=== PATIENT | female | born 1990 | race Two or more races ===

== ENCOUNTER 2020-03-22 08:25 | Inpatient (IN) | payer MEDICAID ==
[2020-03-28] MEDS ORDERED: cefOXitin 2 GM in Sodium Chloride 0.9% 50 ML IV ONE (06:30)
[2020-03-29] MEDS ORDERED: Dextrose 5%-Lactated Ringers 1,000 ML IV SCH (06:00)
[2020-03-29] MEDS ORDERED: Celecoxib 200 MG Cap PO ONE (06:00)
[2020-03-29] MEDS ORDERED: Scopolamine 1.5 MG Transdermal Patch TOP SCH (06:00)
[2020-03-29] MEDS ORDERED: Gabapentin 300 MG Cap PO ONE (06:00)
[2020-03-29] MEDS ORDERED: Albuterol/Ipratropium 3.0-0.5 MG/3 ML Neb Soln NEB ONE (06:30)
[2020-03-29] MEDS ORDERED: cefOXitin 2 GM in Sodium Chloride 0.9% 50 ML IV ONE (06:30)
[2020-03-29] MEDS ORDERED: Acetaminophen 500 MG Tab PO ONE (07:00)
[2020-03-29] MEDS ORDERED: fentaNYL 250 MCG/5 ML SDV ONE ×2 (07:09→07:47)
[2020-03-29] MEDS ORDERED: Propofol 200 MG/20 ML SDV ONE (07:13)
[2020-03-29] MEDS ORDERED: Glycopyrrolate 0.2 MG/ML 5 ML MDV ONE (07:13)
[2020-03-29] MEDS ORDERED: Ondansetron 4 MG/2 ML SDV ONE (07:13)
[2020-03-29] MEDS ORDERED: Rocuronium 50 MG/5 ML Vial ONE (07:13)
[2020-03-29] MEDS ORDERED: Dexamethasone 4 MG/ML SDV ONE (07:13)
[2020-03-29] MEDS ORDERED: Neostigmine Methylsulfate 1 MG/ML 5 ML Syringe ONE (07:13)
[2020-03-29] MEDS ORDERED: Succinylcholine 200 MG/10 ML MDV ONE (07:13)
[2020-03-29] MEDS ORDERED: Ketamine 500 MG/5 ML MDV IV SCH (07:30)
[2020-03-29] MEDS ORDERED: Ropivacaine 50 ML, dexAMETHasone 8 MG, EPINEPHrine 0.4 MG, Sodium Chloride 0.9% 27.6 ML NERVRT SCH ×4 (07:30)
[2020-03-29] MEDS ORDERED: Magnesium Sulfate 3 GM in Sodium Chloride 0.9% 100 ML IV SCH (07:30)
[2020-03-29] MEDS ORDERED: Magnesium Sulfate 4.8 GM in Sodium Chloride 0.9% 250 ML IV ONE (07:30)
[2020-03-29] MEDS ORDERED: Ketamine 50 MG in Sodium Chloride 0.9% 49.5 ML IV SCH (07:30)
[2020-03-29] MEDS: cefOXitin 2 GM Vial ONE ×2 (08:08→08:40)
[2020-03-29] MEDS ORDERED: Labetalol 20 MG/4 ML Syringe ONE (08:28)
[2020-03-29] MEDS ORDERED: hydrOXYzine HCL 100 MG/2 ML SDV IM ONE (09:11)
[2020-03-29] MEDS ORDERED: fentaNYL 100 MCG/2 ML SDV IVPUSH ONE (09:11)
[2020-03-29 09:55] LABS: HEMOGLOBIN A1C 4.8 % (4.5-6.2)
[2020-03-29] MEDS ORDERED: Cyclobenzaprine 10 MG Tab PO PRN (11:02)
[2020-03-29] MEDS ORDERED: Albuterol/Ipratropium 3.0-0.5 MG/3 ML Neb Soln INH PRN (12:00)
[2020-03-29] MEDS ORDERED: hydrOXYzine HCL 100 MG/2 ML SDV IM PRN (12:00)
[2020-03-29] MEDS ORDERED: HYDROmorphone 1 MG/ML Syringe IV PRN (12:00)
[2020-03-29] MEDS ORDERED: Metoclopramide 10 MG/2 ML SDV IVPUSH PRN (12:00)
[2020-03-29] MEDS ORDERED: Ondansetron 4 MG/2 ML SDV IVPUSH PRN (12:00)
[2020-03-29] MEDS ORDERED: diphenhydrAMINE 50 MG/ML SDV IVPUSH PRN (12:00)
[2020-03-29] MEDS ORDERED: HYDROmorphone 0.5 MG/0.5 ML Syringe IVPUSH PRN (12:00)
[2020-03-29] MEDS ORDERED: Acetaminophen 500 MG Tab PO PRN (12:00)
[2020-03-29] MEDS ORDERED: Labetalol 20 MG/4 ML Syringe IVPUSH PRN (12:00)
[2020-03-29] MEDS ORDERED: Calcium Gluconate 10% 1 GM/10 ML SDV IVPUSH PRN (12:00)
[2020-03-29] MEDS ORDERED: Pantoprazole 40 MG Vial IVPUSH SCH (12:30)
[2020-03-29] MEDS: cefOXitin 2 GM in Sodium Chloride 0.9% 50 ML IV SCH ×3 (12:46→23:47)
[2020-03-29] MEDS: Albuterol/Ipratropium 3.0-0.5 MG/3 ML Neb Soln INH SCH ×2 (14:20→21:21)
[2020-03-29] MEDS: Gabapentin 250 MG/5 ML Solution ML 470 ML Bottle PO SCH ×2 (15:15→21:21)
[2020-03-29] MEDS: Acetaminophen 500 MG Tab PO SCH ×2 (15:16→21:21)
[2020-03-29] MEDS: Heparin Sodium 5,000 Units/ML Vial SUBCUT SCH (15:16)
[2020-03-29] MEDS ORDERED: MVI, Adult with Vitamin K 10 ML, Thiamine 200 MG, Zinc/Copper/Manganese/Selenium 1 ML i... IV SCH ×4 (16:00)
[2020-03-29] MEDS: oxyCODONE 5 MG Tab PO PRN (19:31)
[2020-03-29] MEDS: Formoterol/Mometasone 100-5 MCG 8.8 GM Inhaler IH SCH (21:20)
[2020-03-29] MEDS: Dextrose 5%-Lactated Ringers 1,000 ML IV SCH (21:40)
[2020-03-30] MEDS ORDERED: Iopamidol 612 MG/ML 50 ML SDV IV PRN (03:00)
[2020-03-30] MEDS: Heparin Sodium 5,000 Units/ML Vial SUBCUT SCH (03:18)
[2020-03-30] MEDS: Acetaminophen 500 MG Tab PO SCH ×3 (05:36→22:38)
[2020-03-30] MEDS: Dextrose 5%-Lactated Ringers 1,000 ML IV SCH (05:37)
[2020-03-30] MEDS: cefOXitin 2 GM in Sodium Chloride 0.9% 50 ML IV SCH ×2 (05:38→12:43)
[2020-03-30] MEDS: Formoterol/Mometasone 100-5 MCG 8.8 GM Inhaler IH SCH ×2 (07:17→20:37)
[2020-03-30] MEDS: Albuterol/Ipratropium 3.0-0.5 MG/3 ML Neb Soln INH SCH ×4 (07:18→20:37)
[2020-03-30] MEDS ORDERED: Dextrose 5%-Lactated Ringers 1,000 ML IV SCH (07:45)
[2020-03-30] MEDS: SCOPOLAMINE PATCH CHECK TOP SCH (08:43)
[2020-03-30] MEDS: Celecoxib 200 MG Cap PO SCH ×2 (08:43→20:37)
[2020-03-30] MEDS: Gabapentin 250 MG/5 ML Solution ML 470 ML Bottle PO SCH ×3 (08:43→20:37)
--- NOTE | 2020-03-30 11:33 | PN ---
CORRECTED REPORT DATE OF SERVICE: 03/30/2020 The patient is postop day 1 from a laparoscopic Ashu-en-Y gastric bypass along with hiatal hernia repair. Clinically, she is doing well. Upper GI x-ray looks good. We will advance up to a step-2 diet today and she has been refusing her heparin, so we will discontinue that. She is up walking quite well. Eladio Francois MD /[id number] MTDD
[2020-03-30] MEDS: oxyCODONE 5 MG Tab PO PRN ×2 (12:43→20:32)
[2020-03-30] MEDS ORDERED: MVI, Adult with Vitamin K 10 ML, Thiamine 200 MG, Zinc/Copper/Manganese/Selenium 1 ML i... IV SCH ×4 (16:00)
[2020-03-30] MEDS ORDERED: Pantoprazole 40 MG Delayed-Release Granules 1 Packet PO SCH (16:30)
[2020-03-31] MEDS: Acetaminophen 500 MG Tab PO SCH (05:22)
[2020-03-31] MEDS: Formoterol/Mometasone 100-5 MCG 8.8 GM Inhaler IH SCH (07:09)
[2020-03-31] MEDS: Albuterol/Ipratropium 3.0-0.5 MG/3 ML Neb Soln INH SCH (07:10)
[2020-03-31] MEDS ORDERED: Magnesium Hydroxide 400 MG/5 ML Susp 30 ML Cup PO PRN (07:34)
[2020-03-31] MEDS: oxyCODONE 5 MG Tab PO PRN (08:17)
[2020-03-31] MEDS: Cyanocobalamin (Vitamin B12) 1,000 MCG/ML SDV IM ONE ×2 (08:17→09:23)
[2020-03-31] MEDS: SCOPOLAMINE PATCH CHECK TOP SCH (08:18)
[2020-03-31] MEDS: Gabapentin 250 MG/5 ML Solution ML 470 ML Bottle PO SCH (09:20)
--- NOTE | 2020-04-01 09:23 | CR ---
[facility] HISTORY: Postbariatric surgery FINDINGS: Patient swallowed water-soluble contrast. Upright views of the abdomen show no evidence of extravasation or obstruction. There is a surgical drain in the left upper quadrant. IMPRESSION: Status post bariatric surgery No extravasation or obstruction seen
--- NOTE | 2020-04-01 10:03 | OR ---
DATE OF PROCEDURE: 03/29/2020 SURGEON: Eladio Francois MD PREOPERATIVE DIAGNOSIS: Morbid obesity. POSTOPERATIVE DIAGNOSES: 1. Morbid obesity. 2. Marked hepatomegaly. 3. Paraesophageal diaphragmatic hernia. OPERATIVE PROCEDURES: 1. Laparoscopic Ashu-en-Y gastric bypass with long limb gastroenterostomy (27983). 2. Flavio-Cut needle liver biopsy (76921). 3. Repair of paraesophageal diaphragmatic hernia (17052). ANESTHESIA: General. BOOKING POLICE OFFICER: Leilani Morris PA-C INDICATIONS FOR PROCEDURE: This is a 30-year-old female, presenting with longstanding morbid obesity and increasingly significant comorbidities including a fairly extensive metabolic syndrome. Plan is to proceed with a Ashu-en-Y gastric bypass. Potential risks of the procedure including bleeding, infection, leaks from various GI tract closures, problems with bowel obstruction over time as well as possibility of cardiopulmonary, septic, or hemorrhagic complications leading to were discussed, and the patient wishes to proceed. DETAILS OF PROCEDURE: The patient was taken to the operating room and placed in a supine position. After general endotracheal anesthesia was induced, she was converted to a lithotomy position and the abdomen prepped and draped. 15 cm inferior and 5 cm left of the xiphoid process transverse incision was made and peritoneal cavity entered under direct vision with an Optiview trocar, inflated to 15 mmHg pressure with CO2. Laparoscope was then reinserted. No underlying trocar insertion site injuries were seen. Following this, 5 additional trocars were placed across the upper and mid abdomen. Bilateral transversus abdominis plane blocks were then placed. Liver was noted to be markedly enlarged and fatty infiltrated and Flavio-Cut needle biopsies were obtained from the left lobe of the liver. Minimal bleeding from the biopsy sites was controlled with electrocautery. The omentum was then divided in the midline up to the level of the transverse colon. This allowed identification of small bowel to the ligament of Treitz. Small bowel was then traced out 100 cm distal to that point where it was divided transversely with a ROLLY stapler. Small bowel was then traced out additional 180 cm where the [id number] enteroenterostomy was accomplished with internal firing of the Endo-ROLLY 60 mm stapler. Common opening was then closed transversely with the same stapler, angles anastomosed, and mesenteric defect approximated with some 0 Ethibond stitch along with 4 mL of fibrin sealant. Divided end of Ashu limb was then from the mesentery for a few centimeters, which allowed an antecolic position of the Ashu limb up to the level of esophagogastric junction without tension. The liver was then retracted anteriorly. The patient was noted to have a moderate-sized paraesophageal diaphragmatic hernia containing some preperitoneal fat along with gastric fundus in a plane anterior to the course of the esophagus. The hernia was reduced and peritoneum overlying incised and reflected downward. An anterior repair of the diaphragmatic hernia was then accomplished with 0 Ethibond stitch reinforced with PTFE pledgets. The gastrointestinal balloon catheter was then inflated to 15 mL and pulled up snugly against the EG junction. Gastric wall over the apex balloon was then marked with electrocautery and balloon catheter deflated and withdrawn. The lesser omental tissue adjacent to the gastric cardia was then incised, allowing dissection behind the stomach at that level. Pouch formation was initiated with a transverse firing of the ROLLY stapler at the level of the cauterized kolton in the gastric cardia and completed with some additional ROLLY staple lines up to and through the angle of His. Upon completion of the pouch, both staple lines were noted to be intact. The anvil of a 25 mm EEA stapler was attached to Wasatch sump type tube. The latter was brought down through the mouth, taken out through a small opening in the gastric pouch, allowing the anvil likewise to be pulled down to within the gastric pouch. The divided end of Ashu limb was then opened, and main body of EEA stapler passed several centimeters in the lumen of small bowel, brought up the anvil, and united with it thus creating the gastrojejunostomy. Upon removal of stapler, double donuts of mucosa were noted within it. Small bowel was closed off with a vascular staple line. Gastrojejunostomy was reinforced with some 3-0 Vicryl seromuscular stitch along with fibrin sealant. Leak test was accomplished with injection of 120 mL of air in the gastric pouch, while it was submerged with cefoxitin-containing saline solution. No leaks were identified. A single Mario- Deleon drain was then taken out through the left lateral trocar site and positioned adjacent to the gastrojejunostomy, from there up into the splenic fossa. Trocars were then removed and peritoneal cavity deflated. Incisions were closed with some 4-0 Vicryl skin stitch and drain affixed with some 4-0 Vicryl stitch as well. The patient was taken to the recovery room in satisfactory condition. Physician fire assistant, Leilani Morris, played an essential role in assisting in this case, helping to position the patient, retract structures as needed, as well as suturing and cutting sutures when indicated. Her presence improved patient safety and decreased operative time. Eladio Francois MD /[id number]
--- NOTE | 2020-04-01 10:03 | DISCH ---
FINAL DIAGNOSES: 1. Morbid obesity. 2. Marked hepatomegaly. 3. Paraesophageal diaphragmatic hernia. 4. History of metabolic syndrome including impaired fasting glucose, hypertriglyceridemia, low HDL, and obesity. 5. Left lumbar radiculopathy with low back pain and left-sided sciatica. OPERATIVE PROCEDURES: Done on 03/29/2020, diagnostic laparoscopy with: 1. Laparoscopic Ashu-en-Y gastric bypass along with gastroenterostomy. 2. Flavio-Cut needle liver biopsy. 3. Repair of paraesophageal diaphragmatic hernia. SUMMARY: This is a 30-year-old female presenting with longstanding morbid obesity and increasingly significant comorbidities including a progressively worsening metabolic syndrome. On the day of admission, the patient underwent a Ashu-en-Y gastric bypass laparoscopically along with liver biopsy and repair of paraesophageal diaphragmatic hernia. Postoperatively, she has had no significant problems. She will be discharged home on a step- 2 diet. She will be instructed to follow up with [facility] on Wednesday04/08/2020 to have her suture removed, and then virtual visit with Leilani Morris PA-C, at [facility] on 04/09/2020. The patient will be staying on step-2 diet until that first postop visit with Leilani Morris PA-C. Otherwise, she will begin her usual medications other than we will instruct her not to take the naproxen as that would be contraindicated following gastric bypass. If she does need to have a nonsteroidal anti-inflammatory long-term, Celebrex would be an acceptable alternative. Otherwise, she will be continued on her usual medications plus Tylenol 1 g q.6 hours p.r.n. and oxycodone 5 mg p.o. q.6 hours p.r.n. pain #30. She will be instructed to hold vitamins and other supplements until after her first appointment. /[id number]
== END 2020-03-31 09:45 | disposition home or self-care (01) | DRG 621 ==
LOC: JP.MS 03-29 04:38 → JP.SDS 03-29 04:38 → EDSTATUS 03-29 07:15 → JP.MS 03-29 07:30
PROVIDERS: ADMIT Surgery; ATTEND Surgery
PROC: 0D164ZA Bypass Stomach to Jejunum, Percutaneous Endoscopic Approach (ICD-10-PCS; principal; 2020-03-29)
PROC: 0FB24ZX Excision of Left Lobe Liver, Percutaneous Endoscopic Approach, Diagnostic (ICD-10-PCS; 2020-03-29)
PROC: 0BQT4ZZ Repair Diaphragm, Percutaneous Endoscopic Approach (ICD-10-PCS; 2020-03-29)
DX: E66.01 Morbid (severe) obesity due to excess calories (principal); R16.0 Hepatomegaly, not elsewhere classified; K44.9 Diaphragmatic hernia without obstruction or gangrene; E78.1 Pure hyperglyceridemia; M54.16 Radiculopathy, lumbar region; M54.42 Lumbago with sciatica, left side; Z79.899 Other long term (current) drug therapy; Z68.41 Body mass index [BMI] 40.0-44.9, adult
CPT/HCPCS: 36415; 74240; 74240-26; 80053; 81025; 83036; 83735; 84100; 85027; 86850; 86900; 86901; 88307; 88313; 93005; 94640; 94762; A9270-GY; C9113; J0171; J0330; J0694; J1100; J1170; J1644; J2405; J2704; J2710; J2795; J3010; J3410; J3411; J3420; J3475; J3490; J7030; J7050; J7121; J7620-GY; Q9967